=== PATIENT | female | born 1960 | race Asian ===

== ENCOUNTER 2021-12-25 16:28 | Inpatient (IN) | payer OTHER ==
[~2021-12-25] VITALS: Ht 152.4 cm; Wt 45.8 kg
[2021-12-25] MEDS ORDERED: SODIUM CHLORIDE 0.9% 1,000 ML IV ONE (16:45)
[2021-12-25 17:09] LABS: BASOPHILS % (AUTO) 0.6 % (0.0-2.0); EOSINOPHILS % (AUTO) 1.7 % (1.0-6.0); HEMATOCRIT 33.9 % (36-46); HEMOGLOBIN 11.2 g/dL (12.0-16.0); LYMPHOCYTES # (AUTO) 1.6 K/uL (1.0-4.8); LYMPHOCYTES % (AUTO) 31.2 % (22.0-44.0); MEAN CORPUSCULAR HGB CONC 32.8 G/dL (31.0-37.0); MEAN CORPUSCULAR VOLUME 94 fL (80-100); MONOCYTES # (AUTO) 0.3 K/uL (0.1-1.0); MONOCYTES % (AUTO) 4.9 % (2.0-9.0); NEUTROPHILS # (AUTO) 3.1 K/uL (1.8-7.7); NEUTROPHILS % (AUTO) 61.6 % (40.0-70.0); PLATELET COUNT (AUTO) 279 K/uL (150-450)
[2021-12-25 17:19] LABS: ANION GAP 10 mmol/L (8-16); CALCIUM, TOTAL 9.6 mg/dL (8.8-10.5); CARBON DIOXIDE 26 mmol/L (22-29); CHLORIDE 100 mmol/L (98-107); CREATININE 1.25 mg/dL (0.60-1.30); GLOMERULAR FILTR. RATE CALC 43 mL/min (>60); GLUCOSE,RANDOM 245 mg/dL (70-110); POTASSIUM 4.8 mmol/L (3.5-5.1); SODIUM SERUM 136 mmol/L (136-145); UREA NITROGEN, BLOOD 47 mg/dL (7-18)
[2021-12-25 17:21] LABS: IRON, SERUM 91 mcg/dL (50-175); TOTAL IRON BINDING CAPACITY 303 mcg/dL (250-450)
[2021-12-25 17:23] LABS: PROTHROMBIN TIME 10.2 SEC (9.4-11.6)
[2021-12-25 17:25] LABS: ALANINE AMINOTRANSFERASE 24 U/L (12-78); ALBUMIN 3.9 g/dL (3.4-5.0); ALKALINE PHOSPHATASE 39 U/L (46-116); ASPARTATE AMINOTRANSFERASE 20 U/L (15-37); BILIRUBIN,TOTAL 0.5 mg/dL (0.1-1.0); LIPASE 177 U/L (73-393); TOTAL PROTEIN, SERUM 7.8 g/dL (6.4-8.2)
[2021-12-25 17:27] LABS: B-TYPE NATRIURETIC PEPTIDE 16 pg/mL (0-100)
[2021-12-25 17:31] LABS: LACTIC ACID 3.5 mmol/L (0.4-2.0)
[2021-12-25] MEDS ORDERED: FERR-89 PO (17:36)
[2021-12-25] MEDS ORDERED: SIMV-259 PO (17:36)
[2021-12-25] MEDS ORDERED: CARV12 PO (17:36)
[2021-12-25] MEDS ORDERED: METF-1211 PO (17:36)
[2021-12-25] MEDS ORDERED: CHL25 PO (17:36)
[2021-12-25 17:44] LABS: COVID AG,FIA SOURCE NASOPHARYNGEAL
[2021-12-25] MEDS ORDERED: PANTOPRAZOLE SODIUM 40 MG/VIAL IVP SCH (18:30)
[2021-12-25] MEDS ORDERED: ONDANSETRON HCL 4 MG/2 ML VIAL IVP PRN (18:30)
[2021-12-25] MEDS ORDERED: RINGERS SOLUTION,LACTATED 500 ML IV SCH (18:30)
[2021-12-25 18:40] LABS: D-DIMER 0.22 mg/L FEU (0.00-0.50)
[2021-12-25] MEDS: RINGERS SOLUTION,LACTATED 1,000 ML IV SCH (20:21)
[2021-12-25] MEDS ORDERED: DEXTROSE 50%-WATER 25 GM/50 ML SYRINGE IVP PRN (21:45)
[2021-12-25] MEDS: INSULIN LISPRO 100 UNITS/ML SQ PRN (22:02)
[2021-12-25 22:11] LABS: GLUCOSE,POINT OF CARE 188 MG/DL (70-110)
[2021-12-25 22:43] LABS: APPEARANCE,URINE CLEAR (CLEAR); BILIRUBIN,URINE NEGATIVE (NEGATIVE); GLUCOSE, URINE (UA) 100 mg/dL (NEGATIVE); KETONES,URINE NEGATIVE (NEGATIVE); LEUKOCYTE ESTERASE ,URINE LARGE (NEGATIVE); NITRATE,URINE NEGATIVE (NEGATIVE); OCCULT BLOOD,URINE MODERATE (NEGATIVE); PROTEIN,URINE NEGATIVE (NEGATIVE); UROBILINOGEN,URINE 0.2 mg/dL (<=1.0)
[2021-12-25 22:58] LABS: BACTERIA,URINE Many /HPF (None Seen)
[2021-12-26] VITALS: BP 133/76
[2021-12-26] MEDS: CefTRIAXone 1 GM/DEXTROSE 50 ML IV SCH (00:04)
[2021-12-26] MEDS: RINGERS SOLUTION,LACTATED 1,000 ML IV SCH ×2 (03:32→13:17)
[2021-12-26 04:00] VITALS: BP 146/76
[2021-12-26 05:36] LABS: GLUCOSE,POINT OF CARE 139 MG/DL (70-110)
[2021-12-26] MEDS: PANTOPRAZOLE SODIUM 40 MG/VIAL IVP SCH (08:57)
[2021-12-26] MEDS: MULTIVITAMINS WITH MINERALS, THERAPEUTIC TABLET PO SCH (11:06)
[2021-12-26 11:31] LABS: GLUCOSE,POINT OF CARE 135 MG/DL (70-110)
[2021-12-26 12:00] VITALS: BP 146/84
[2021-12-26 16:00] VITALS: BP 148/83
[2021-12-26 20:10] VITALS: BP 153/90
[2021-12-26] MEDS: INSULIN LISPRO 100 UNITS/ML SQ PRN (20:15)
[2021-12-26] MEDS ORDERED: INSULIN GLARGINE,HUM.REC.ANLOG 100 UNITS/ML SQ SCH (21:00)
[2021-12-26 21:01] LABS: GLUCOMETER DEV NAME(LOC) 5S.1B; GLUCOSE,POINT OF CARE 128 MG/DL (70-110)
[2021-12-27] VITALS (8 sets, daily range): BP systolic 132–189; BP diastolic 86–114
[2021-12-27] MEDS: CefTRIAXone 1 GM/DEXTROSE 50 ML IV SCH ×2 (00:29→23:23)
[2021-12-27] MEDS: RINGERS SOLUTION,LACTATED 1,000 ML IV SCH (02:20)
[2021-12-27 06:07] LABS: GLUCOMETER DEV NAME(LOC) 5S.1B; GLUCOSE,POINT OF CARE 134 MG/DL (70-110)
[2021-12-27] MEDS: PANTOPRAZOLE SODIUM 40 MG/VIAL IVP SCH (08:29)
[2021-12-27] MEDS: MULTIVITAMINS WITH MINERALS, THERAPEUTIC TABLET PO SCH (08:29)
[2021-12-27 09:15] LABS: MAGNESIUM 1.5 mg/dL (1.80-2.40); PHOSPHORUS 4.1 mg/dL (2.5-4.9)
[2021-12-27 09:32] LABS: HEMOGLOBIN A1C 7.1 % (3.8-5.6)
[2021-12-27 11:53] LABS: GLUCOMETER DEV NAME(LOC) 5N.3; GLUCOSE,POINT OF CARE 189 MG/DL (70-110)
[2021-12-27 11:54] LABS: GLUCOMETER DEV NAME(LOC) 5N.3; GLUCOSE,POINT OF CARE 188 MG/DL (70-110)
[2021-12-27] MEDS: INSULIN LISPRO 100 UNITS/ML SQ PRN (12:12)
[2021-12-27] MEDS ORDERED: CEPH500C3 PO (13:33)
[2021-12-27] MEDS ORDERED: CARV12 PO (13:33)
[2021-12-27] MEDS: CARVEDILOL 12.5 MG TABLET PO SCH (14:20)
[2021-12-27] MEDS ORDERED: MAGNESIUM OXIDE 400 MG TABLET PO ONE (15:00)
[2021-12-27 20:32] LABS: GLUCOMETER DEV NAME(LOC) 5N.1C; GLUCOSE,POINT OF CARE 147 MG/DL (70-110)
[2021-12-27 20:32] LABS: GLUCOMETER DEV NAME(LOC) 5S.1B; GLUCOSE,POINT OF CARE 133 MG/DL (70-110)
[2021-12-27] MEDS ORDERED: CARVEDILOL 3.125 MG TABLET PO ONE (21:00)
[2021-12-28 03:48] VITALS: BP 148/93
[2021-12-28 07:00] VITALS: BP 150/87
[2021-12-28] MEDS: PANTOPRAZOLE SODIUM 40 MG/VIAL IVP SCH (09:14)
[2021-12-28] MEDS: CARVEDILOL 12.5 MG TABLET PO SCH (09:14)
[2021-12-28] MEDS: MULTIVITAMINS WITH MINERALS, THERAPEUTIC TABLET PO SCH (09:14)
[2021-12-28 10:46] VITALS: BP 136/90
[2021-12-28 14:53] VITALS: BP 155/103
== END 2021-12-28 15:15 | disposition home or self-care (01) | DRG 48 ==
LOC: EMS 16:32 → ICU 20:11 → 5S 12-26 11:45
PROVIDERS: ADMIT Internal Medicine; ATTEND Internal Medicine
DX: G90.8 Other disorders of autonomic nervous system (principal); E87.2 Acidosis; I95.9 Hypotension, unspecified; E11.65 Type 2 diabetes mellitus with hyperglycemia; E78.5 Hyperlipidemia, unspecified; D64.9 Anemia, unspecified; E86.0 Dehydration; I10 Essential (primary) hypertension; N39.0 Urinary tract infection, site not specified; R32 Unspecified urinary incontinence; Z20.822 Contact with and (suspected) exposure to COVID-19
CPT/HCPCS: 70450; 71045; 80053; 81001; 82271; 82962; 83036; 83540; 83550; 83605; 83690; 83735; 83880; 84100; 84484; 85025; 85379; 85610; 85730; 86850; 86900; 86901; 87040; 87081; 87086; 93005; 95816; 99285; C9113; G0378; J0696; J1815; J7120; 36415-L1; 36415-TC